=== PATIENT | female | born 1940 | race Caucasian/White ===

== ENCOUNTER → 2017-04-05 | Outpatient (CLI) | payer MEDICARE, BC ==
[~2017-04-05] MED LIST: Iopamidol 755 MG/ML 500 ML Multipack Bottle IVPUSH STA
--- NOTE | 2017-04-05 16:05 | CT ---
EXAMINATION: CT chest contrast HISTORY: Fibrosis COMPARISON: None TECHNIQUE: Axial CT images obtained through the chest following the administration of 75 mL of Isovu e-370 in the right antecubital fossa. Coronal and sagittal reconstructions obtained. FINDINGS: The lungs are clear without focal consolidation. No pleural effusion or pneumothorax. Mild dependent atelectasis is noted most notable within the lung bases. No bronchiectasis. No honeycombi ng or volume loss. Mild reticular changes are noted along the peripheral aspect. Mild paraseptal emp hysematous changes within the left lingula. The heart is normal in size without a significant perica rdial effusion. There is a trace hiatal hernia. The thoracic aorta is normal in caliber. The main pu lmonary arteries are patent. The central airways are clear. There is a borderline precarinal lymph n ode noted. Pathologically enlarged hilar lymph nodes are noted. There is a small cyst within the left hepatic lobe. The remaining images of the upper abdomen appear normal. No suspicious osseous structures identified. IMPRESSION: 1. Minimal pulmonary scarring noted. 2. No acute cardiopulmonary findings.
== END ==
LOC: MW.DI 14:38
PROVIDERS: ATTEND Family Medicine
DX: J84.10 Pulmonary fibrosis, unspecified (principal); R91.8 Other nonspecific abnormal finding of lung field
CPT/HCPCS: 71260; Q9967

== ENCOUNTER 2020-03-30 12:53 | Emergency (ER) | payer MEDICARE, BC ==
[2020-03-30] MEDS ORDERED: Sodium Chloride 0.9% 10 ML Syringe FLUSH PRN (13:09)
[2020-03-30] MEDS ORDERED: Sodium Chloride 0.9% 2.5 ML Syringe FLUSH PRN ×2 (13:09)
[2020-03-30] MEDS ORDERED: Aspirin 81 MG Tab.Chew PO ONE (13:09)
--- NOTE | 2020-03-30 13:13 | EDM.PDOC ---
ED HPI GENERAL MEDICAL PROBLEM - General Chief Complaint: Cardiovascular Problem Stated Complaint: SOB Time Seen by Provider: 03/30/20 13:00 - History of Present Illness INITIAL COMMENTS - FREE TEXT/NARRATIVE: History of present illness: Patient presents with several weeks of increasing shortness of breath. She denies any cough fever weight gain or leg swelling she has recently been treated with radiation for breast cancer she a prior blood clots there is no chest pain but she has had some palpitations with the symptoms there is been no productive cough nothing seems to make it better or worse [] Review of systems: As per history of present illness and below otherwise all systems reviewed and negative. Past medical history: As per history of present illness and as reviewed below otherwise noncontributory. Surgical history: As per history of present illness and as reviewed below otherwise noncontributory. Social history: No reported history of drug or alcohol abuse. Family history: As per history of present illness and as reviewed below otherwise noncontributory. Physical exam: HEENT: Atraumatic, normocephalic, pupils reactive, negative for conjunctival pallor or scleral icterus, mucous membranes moist, throat clear, neck supple, nontender, trachea midline. Lungs: Clear to auscultation, breath sounds equal bilaterally, chest nontender. Heart: S1S2, regular, negative for clicks, rubs, or JVD. Abdomen: Soft, nondistended, nontender. Negative for masses or hepatosplenomegaly. Negative for costovertebral tenderness. Pelvis: Stable nontender. Genitourinary: Deferred. Rectal: Deferred. Extremities: Atraumatic, negative for cords or calf pain. Neurovascular unremarkable. Neuro: Awake, alert, oriented. Cranial nerves II through XII unremarkable. Cerebellum unremarkable. Motor and sensory unremarkable throughout. Exam nonfocal. Diagnostics: [] Therapeutics: [] Impression: [] Plan: [Patient will have EKG CT angiogram of the chest to rule out PE labs and she will be reassessed] Definitive disposition and diagnosis as appropriate pending reevaluation and review of above. 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 Musculoskeletal History: Reports: Arthritis Neurological History: Reports: None Psychiatric History: Reports: None Endocrine/Metabolic History: Reports: Hypothyroidism Other Endocrine/Metabolic History: thyroid disease Hematologic History: Reports: None Immunologic History: Reports: None Oncologic (Cancer) History: Reports: Breast Dermatologic History: Reports: None - Infectious Disease History Infectious Disease History: Reports: Chicken Pox, Measles - Past Surgical History Head Surgeries/Procedures: Reports: None HEENT Surgical History: Reports: None Cardiovascular Surgical History: Reports: None Respiratory Surgical History: Reports: None GI Surgical History: Reports: None Female Surgical History: Reports: Breast Biopsy Endocrine Surgical History: Reports: None Neurological Surgical History: Reports: Lumbar Spine Musculoskeletal Surgical History: Reports: None Oncologic Surgical History: Reports: Biopsy of Breast Dermatological Surgical History: Reports: None Social & Family History - Family History Family Medical History: Noncontributory - Tobacco Use Smoking Status *Q: Never Smoker Second Hand Smoke Exposure: No - Caffeine Use Caffeine Use: Reports: Coffee - Recreational Drug Use Recreational Drug Use: No ED ROS GENERAL - Review of Systems Review Of Systems: See Below ED EXAM, GENERAL - Physical Exam Exam: See Below EKG INTERPRETATION EKG Date: 03/30/20 EKG Interpretation Comments: EkG is normal sinus rhythm with nonspecific ST-T changes normal axis rate of 65 no ischemic changes read and interpreted by me Course - Vital Signs Text/Narrative:: CT angiogram of the chest was normal not demonstrating a pulmonary embolus pneumonia or other pathology there was a breast hematoma present. This is due to patient's recent biopsy. Patient's lab studies reveals a normal H&H no white count she has a normal BNP and troponin her electrolytes are unremarkable there is no evidence for heart failure for pneumonia for anemia or other pathology that would contribute to her dyspnea. Vital signs been stable in the ED should be discharged home follow-up with primary care the patient albuterol inhaler needed Last Recorded V/S: Last Vital Signs Temp 36.2 C 03/30/20 13:00 Pulse 54 L 03/30/20 14:29 Resp 26 H 03/30/20 14:29 BP 140/69 03/30/20 14:29 Pulse Ox 94 L 03/30/20 14:29 - Orders/Labs/Meds Orders: Active Orders 24 hr Category Date Time Status Cardiac Monitoring [RC] . DIRECTED Care 03/30/20 13:09 Active EKG 12 Lead [EKG Documentation Completion] [RC] STAT Care 03/30/20 13:33 Active Pulse Oximetry [RC] ASDIRECTED Care 03/30/20 13:09 Active Sodium Chloride 0.9% [Saline Flush] Med 03/30/20 13:09 Active 10 ml FLUSH ASDIRECTED PRN Sodium Chloride 0.9% [Saline Flush] Med 03/30/20 13:09 Active 2.5 ml FLUSH ASDIRECTED PRN Sodium Chloride 0.9% [Saline Flush] Med 03/30/20 13:09 Active 2.5 ml FLUSH ASDIRECTED PRN Saline Lock Insert [OM.PC] Stat Oth 03/30/20 13:09 Ordered Medication Orders Sodium Chloride (Saline Flush) 2.5 ml FLUSH ASDIRECTED PRN PRN Reason: Keep Vein Open Sodium Chloride (Saline Flush) 10 ml FLUSH ASDIRECTED PRN PRN Reason: Keep Vein Open Sodium Chloride (Saline Flush) 2.5 ml FLUSH ASDIRECTED PRN PRN Reason: Keep Vein Open Labs: Laboratory Tests 03/30/20 03/30/20 03/30/20 Range/Units 13:07 13:07 13:07 WBC 5.00 (4.0-11.0) K/uL RBC 4.62 (4.30-5.90) M/uL Hgb 13.3 (12.0-16.0) g/dL Hct 41.3 (36.0-46.0) % MCV 89.4 (80.0-98.0) fL MCH 28.8 (27.0-32.0) pg MCHC 32.2 (31.0-37.0) g/dL RDW Std Deviation 45.7 (28.0-62.0) fl RDW Coeff of Whitney 14 (11.0-15.0) % Plt Count 201 (150-400) K/uL MPV 9.70 (7.40-12.00) fL Neut % (Auto) 67.4 (48.0-80.0) % Lymph % (Auto) 17.6 (16.0-40.0) % [place] % (Auto) 9.2 (0.0-15.0) % Eos % (Auto) 5.2 (0.0-7.0) % Baso % (Auto) 0.6 (0.0-1.5) % Neut # (Auto) 3.4 (1.4-5.7) K/uL Lymph # (Auto) 0.9 (0.6-2.4) K/uL [place] # (Auto) 0.5 (0.0-0.8) K/uL Eos # (Auto) 0.3 (0.0-0.7) K/uL Baso # (Auto) 0.0 (0.0-0.1) K/uL Nucleated RBC % 0.0 /100WBC Nucleated RBCs # 0 K/uL Sodium 139 (136-145) mmol/L Potassium 3.8 (3.5-5.1) mmol/L Chloride 104 (98-107) mmol/L Carbon Dioxide 27.8 (21.0-32.0) mmol/L BUN 16 (7.0-18.0) mg/dL Creatinine 0.8 (0.6-1.0) mg/dL Est Cr Clr Drug Dosing 47.17 mL/min Estimated GFR (MDRD) > 60.0 ml/min Glucose 125 H (74-106) mg/dL Calcium 9.1 (8.5-10.1) mg/dL Total Bilirubin 0.5 (0.2-1.0) mg/dL AST 27 (15-37) IU/L ALT 26 (14-63) IU/L Alkaline Phosphatase 103 (46-116) U/L Troponin I < 0.050 (0.000-0.056) ng/mL B-Natriuretic Peptide 65 (<100) PG/ML Total Protein 7.0 (6.4-8.2) g/dL Albumin 3.6 (3.4-5.0) g/dL Globulin 3.4 (2.6-4.0) g/dL Albumin/Globulin Ratio 1.1 (0.9-1.6) Meds: Medications Generic Name Dose Route Start Last Admin Trade Name Freq PRN Reason Stop Dose Admin Sodium Chloride 2.5 ml 03/30/20 13:09 Saline Flush FLUSH ASDIRECTED PRN Keep Vein Open Sodium Chloride 10 ml 03/30/20 13:09 Saline Flush FLUSH ASDIRECTED PRN Keep Vein Open Sodium Chloride 2.5 ml 03/30/20 13:09 Saline Flush FLUSH ASDIRECTED PRN Keep Vein Open Discontinued Medications Generic Name Dose Route Start Last Admin Trade Name Sd PRN Reason Stop Dose Admin Aspirin 324 mg 03/30/20 13:09 03/30/20 13:53 Aspirin PO 03/30/20 13:10 324 mg ONETIME ONE Administration Iopamidol 50 ml 03/30/20 14:11 03/30/20 14:16 Isovue Multipack-370 (76%) IVPUSH 03/30/20 14:12 50 ml ONETIME STA Administration Departure - Departure Time of Disposition: 15:16 Disposition: Home, Self-Care 01 Condition: Good Clinical Impression: Dyspnea Instructions: Shortness of Breath, Adult, [id number] Referrals: PCP,Unknown [Primary Care Provider] - Forms: ED Department Discharge Additional Instructions: The following information is given to patients seen in the emergency department who are being discharged to home. This information is to outline your options for follow-up care. We provide all patients seen in our emergency department with a follow-up referral. The need for follow-up, as well as the timing and circumstances, are variable depending upon the specifics of your emergency department visit. If you don't have a primary care physician on staff, we will provide you with a referral. We always advise you to contact your personal physician following an emergency department visit to inform them of the circumstance of the visit and for follow-up with them and/or the need for any referrals to a consulting specialist. The emergency department will also refer you to a specialist when appropriate. This referral assures that you have the opportunity for follow-up care with a specialist. All of these measure are taken in an effort to provide you with optimal care, which includes your follow-up. Under all circumstances we always encourage you to contact your private physician who remains a resource for coordinating your care. When calling for follow-up care, please make the office aware that this follow-up is from your recent emergency room visit. If for any reason you are refused follow-up, please contact the [facility] Emergency Department at and asked to speak to the emergency department charge nurse. Sepsis Event Note - Evaluation Sepsis Screening Result: No Definite Risk - Focused Exam Vital Signs: Vital Signs Temp Pulse Resp BP Pulse Ox 03/30/20 14:29 54 L 26 H 140/69 94 L 03/30/20 14:00 59 L 23 H 127/63 95 03/30/20 13:29 64 25 H 123/56 L 94 L 03/30/20 13:00 36.2 C 83 16 134/57 L 94 L Date Exam was Performed: 03/30/20 Time Exam was Performed: 15:14 - My Orders Last 24 Hours: My Active Orders 03/30/20 13:09 Cardiac Monitoring [RC] . DIRECTED Pulse Oximetry [RC] ASDIRECTED Sodium Chloride 0.9% [Saline Flush] 10 ml FLUSH ASDIRECTED PRN Sodium Chloride 0.9% [Saline Flush] 2.5 ml FLUSH ASDIRECTED PRN Sodium Chloride 0.9% [Saline Flush] 2.5 ml FLUSH ASDIRECTED PRN Saline Lock Insert [OM.PC] Stat 03/30/20 13:33 EKG 12 Lead [EKG Documentation Completion] [RC] STAT - Assessment/Plan Last 24 Hours: My Active Orders 03/30/20 13:09 Cardiac Monitoring [RC] . DIRECTED Pulse Oximetry [RC] ASDIRECTED Sodium Chloride 0.9% [Saline Flush] 10 ml FLUSH ASDIRECTED PRN Sodium Chloride 0.9% [Saline Flush] 2.5 ml FLUSH ASDIRECTED PRN Sodium Chloride 0.9% [Saline Flush] 2.5 ml FLUSH ASDIRECTED PRN Saline Lock Insert [OM.PC] Stat 03/30/20 13:33 EKG 12 Lead [EKG Documentation Completion] [RC] STAT
[2020-03-30 13:42] LABS: BLOOD UREA NITROGEN,BUN 16 mg/dL (7.0-18.0); CARBON DIOXIDE,CO2 27.8 mmol/L (21.0-32.0); CHLORIDE,CL 104 mmol/L (98-107); GLUCOSE RANDOM 125 mg/dL (74-106); POTASSIUM,K 3.8 mmol/L (3.5-5.1); SODIUM,NA 139 mmol/L (136-145)
[2020-03-30] MEDS ORDERED: Iopamidol 755 MG/ML 200 ML Multipack Bottle IVPUSH STA (14:11)
--- NOTE | 2020-03-30 14:48 | CT ---
CT chest Technique: Multiple axial sections through the chest were obtained. Intravenous contrast was utilized. Study has been performed as a pulmonary angiogram protocol. Comparison: Prior CT chest of 04/05/17. Findings: Fluid-filled collection possibly due to previous hematoma is noted within the right breast with associated skin thickening. This fluid collection measures about 7.8 cm x 3.7 cm. Pulmonary arteries are well opacified. No filling defects are seen to indicate pulmonary embolism. Aorta shows atherosclerotic change without aneurysm. Mildly enlarged lymph nodes are seen within the mediastinum which appear fairly stable from prior CT exam. Largest lymph node measures approximately 1.6 cm. Heart is mildly enlarged. Upper visualized abdominal structures shows no discrete abnormality. Emphysematous change seen within both lungs. Peripheral fibrosis is noted within both lungs. No definite acute parenchymal change is appreciated. Lucent lesion noted within a mid to upper thoracic vertebral body which is stable from prior study and is most likely due to a a benign hemangioma. Scattered degenerative change seen within the spine with nothing acute being seen within the visualized osseous structures. Impression: 1. Fluid-filled collection within the right breast with associated skin thickening. Fluid collection may represent previous hematoma. 2. No findings of pulmonary embolism. 3. Emphysematous change with mild peripheral fibrosis. 4. Slightly hazy bronchovascular markings and difficult to exclude mild pulmonary vascular congestion. Diagnostic code #3 This report was dictated in MDT
== END 2020-03-30 15:30 | disposition home or self-care (01) ==
LOC: MW.ED 12:53
DX: R06.02 Shortness of breath (principal); Z88.8 Allergy status to other drugs, medicaments and biological substances
CPT/HCPCS: 71275; 80053; 83880; 84484; 85025; 93005; 99285; A9270; Q9967; 99283